=== PATIENT | female | born 1950 | race Caucasian/White ===

== ENCOUNTER 2021-08-10 11:55 | Emergency (ER) | payer OTHER ==
[~2021-08-10] VITALS: Ht 167.6 cm; Wt 53.5 kg
[2021-08-10] MEDS ORDERED: KETO10TA2 PO (18:20)
== END 2021-08-10 18:32 | disposition home or self-care (01) ==
LOC: ER 11:55
DX: R10.9 Unspecified abdominal pain (principal)